=== PATIENT | male | born 1970 | race Caucasian/White ===

== ENCOUNTER 2017-12-13 06:26 | Emergency (ER) | payer BC ==
[2017-12-13 06:31] VITALS: BP 109/66; PULSE 52; TEMP 98.3
== END 2017-12-13 06:36 | disposition home or self-care (01) ==
LOC: COL.ER 06:26
DX: S61.012D Laceration without foreign body of left thumb without damage to nail, subsequent encounter (principal); X58.XXXD Exposure to other specified factors, subsequent encounter